=== PATIENT | male | born 1960 | race Caucasian/White ===

== ENCOUNTER → 2018-03-12 12:50 | Outpatient (CLI) | payer OTHER, SELFPAY ==
--- NOTE | 2018-03-12 10:42 | DI.REPORT_ITS ---
SYMPTOM/DIAGNOSIS: ACUTE LT ANKLE PAIN M25.572 LEFT ANKLE: Three views. No acute fracture or dislocation is identified. There are well corticated osseous densities at the tip of the medial malleolus consistent with old injury. The articular surfaces of the ankle are well maintained. There are osteophytes seen at the posterior calcaneus. No suspicious lytic or sclerotic lesions are seen in the ankle. IMPRESSION: Chronic changes of the left ankle. No acute abnormality.
== END ==
PROVIDERS: PCP Nurse Practitioner; Visit Provider Family Medicine
DX: M25.572 Pain in left ankle and joints of left foot (principal); M25.772 Osteophyte, left ankle
CPT/HCPCS: 73610

== ENCOUNTER 2018-09-08 08:51 | Outpatient (CLI) | payer OTHER, SELFPAY ==
[2018-09-08 09:33] LABS: HCT 46.7 % (40.0-50.0); HGB 15.3 g/dL (13.5-17.5); Mean Corp. HGB Concentration 32.8 g/dL (32.0-36.0); Mean Corpuscular Hemoglobin 29.4 pg (27.0-33.0); Mean Corpuscular Volume 89.8 fL (80-95); Mean Platelet Volume 10.3 fL (8.0-11.0); Platelet Count 206 x1000/uL (130-400); RBC Distribution Width 12.7 % (11.8-14.1); White Blood Cell Count 6.55 k/cumm (4.4-10.8)
[2018-09-08 10:19] LABS: ALT 42 U/L (12-78); AST 24 U/L (15-37); Alkaline Phosphatase 140 U/L (46-116); Anion Gap 12.3 mmol/L (3-11); BUN 19 mg/dL (7-18); Bilirubin, Total 0.4 mg/dL (0.2-1.0); CO2 23.7 mmol/L (21.0-32.0); CREATININE 0.97 mg/dL (0.70-1.30); Calcium 9.6 mg/dL (8.5-10.1); Chloride 104 mmol/L (98-107); Glucose 165 mg/dL (70-100); Potassium 4.7 mmol/L (3.5-5.1); Sodium 140 mmol/L (136-145); Total Protein 7.4 g/dL (6.4-8.2)
[2018-09-08 10:24] LABS: Hemoglobin A1C 6.4 % (4.5-6.2)
[2018-09-08 17:13] LABS: COMMENT (LAB VIEW ONLY) 89.36 mg/dL; Microalb ug/mg Crea 104.3 ug/mg Cr
[2018-09-08 17:42] LABS: Cholesterol 239 mg/dL (50-200); HDL Cholesterol 28 mg/dL (40-60); LDL CHOLESTEROL 70 mg/dL (<100)
[2018-09-08 17:48] LABS: Triglyceride 1073 mg/dL (30-150)
== END 2018-09-08 09:11 ==
PROVIDERS: PCP Nurse Practitioner; Visit Provider Nurse Practitioner
DX: E11.9 Type 2 diabetes mellitus without complications (principal); E78.5 Hyperlipidemia, unspecified; I10 Essential (primary) hypertension
CPT/HCPCS: 36415; 80053; 80061; 83721; 85027; 82043; 82570; 83036

== ENCOUNTER 2018-12-12 06:29 | Emergency (ER) | payer OTHER, SELFPAY ==
[2018-12-12] VITALS (70 sets, daily range): BP systolic 115–185; BP diastolic 62–136; PULSE 85–113; RESP 11–18; TEMP 36.2–37.6; O2SAT 90–96
--- NOTE | 2018-12-12 06:34 | W.ED.GENAD ---
Discharge Plan Disposition Patient Disposition: [facility] Condition: Stable Discharge Details Chief Complaint: Abd Prob Clinical Impression: Acute pancreatitis, Community acquired pneumonia, Acute non-ST elevation myocardial infarction (NSTEMI), Lesion of pancreas Primary Care Provider: Humaira Colon ED Provider: Rigoberto Canela Home Meds and New Rx's Prescriptions: No Action fenofibrate 160 mg tablet 160 mg PO DAILY Qty: 30 RF: 5 cholecalciferol (vitamin D3) 1,000 UNIT capsule 1,000 unit PO DAILY RF: 0 bosawellia 1,000 mg DAILY RF: 0 glimepiride 2 MG tablet 2 mg PO BID Qty: 180 RF: 3 metformin [Glucophage] 1,000 mg tablet 1,000 mg PO BID Qty: 180 RF: 3 lisinopril [Zestril] 10 mg tablet 10 mg PO DAILY Qty: 90 RF: 3 trazodone 50 mg tablet 100 mg PO HS PRN (Reason: insomnia) Qty: 60 RF: 12 sildenafil (antihypertensive) 20 mg tablet 20 mg PO PRN Qty: 90 RF: 0 Discharge Data Discharge Date/Time-TO BE ENTERED AT DEPARTURE: 12/12/18 13:44 Medical Decision Making <James Pineda MD - Last Filed: 12/13/18 10:08> Patient presenting with upper abdominal pain with firm tender upper abdomen epigastric to right upper quadrant. Differential includes cholecystitis, perforated ulcer, pancreatitis. 2 IVs placed and LR bolus given. Laboratory studies and CT scan of the abdomen with IV contrast ordered. Will give Dilaudid and Zofran for comfort. Patient's white count is elevated to 16. Lactic acid is 2. Glucose little high at 233. Lipase elevated to 471. Liver function normal. Troponin indeterminate at 0.14. May be related to demand. CT scan is done but not read. On my review the pancreas does look inflamed. Gallbladder looks okay. He is feeling better after fluids, Zofran, Dilaudid. Patient will be signed out to Dr. Canela who will follow up on prelim CT scan read and disposition patient appropriately which is likely going to be a medicine admission with surgical consult. Medical Records Medical records reviewed: Yes I reviewed the patient's medical records. Lab Data Lab results reviewed: Yes I reviewed the patient's lab results. ECG Data Attestation: I personally reviewed and interpreted this ECG (s) as follows: Interpretation: Sinus tachycardia at 102. Normal axis and intervals. Nonspecific ST changes, nothing acute. <Rigoberto Canela, - Last Filed: 12/12/18 10:05> The patient was signed out to me by my colleague Dr. Pineda. At that time we are pending CT results and placement. CT scan is come back and demonstrates notable pancreatitis in conjunction with a questionable pancreatic mass versus pseudocyst versus abscess. With the patient's elevated white count, lactate of 2, elevated glucose, age greater than 55, evidence of pancreatitis, and other comorbidities and risk factor is rancid score is elevated. CT scan also shows evidence of mild pneumonia in the pulmonary bases, and review of this with the patient does reveal that he has had a cough for the last few days. Troponin is elevated at 0.14 however the patient has no chest pain, and the epigastric pain is notably reproducible. No evidence of gallbladder pathology on CT scan. Patient has been started on Levaquin and Flagyl, which will cover pulmonary etiology and intra-abdominal versus pancreatic abscess. He has been given aspirin, with no EKG changes or significant chest pain and no evidence of STEMI we are currently holding off on heparinization. I have spoken briefly with the hospitalist Dr Domínguez and surgeon Dr Wagner here, currently we have no appropriate bed availability, no ICU beds, and no telemetry beds here for the patient. He will reach out to [facility] for potential transfer. Currently the patient remains hemodynamically stable, heart rate has improved to the 90s, blood pressure is slightly high, no evidence of hypotension. He remains afebrile, pain notably improved with Dilaudid. 10:02 AM We have contacted [facility] and I discussed the case with Dr. Stark, she agrees with the assessment and plan. Repeat troponin has gone from 0.02-0.01. He remains asymptomatic of chest pain, with no chest pain, improving troponin, the case was discussed with the [facility] hospitalist, and no recommendation for additional medication. We have given him aspirin already. I have extensively reviewed the treatment plan with the patient. I have addressed all patient concerns at this time. I have also discussed the plan with the admitting physician and they agree with the current assessment and plan and have agreed to assume responsibility for the patient. All parties demonstrate verbal understanding and agreement with our assessment and plan at this time. Diagnosis pancreatitis, pancreatic lesion, and STEMI, community-acquired pneumonia. At time of transfer the patient was reassessed and continued to demonstrate current medical stability. No signs of acute respiratory distress requiring intubation, hemodynamic instability requiring pressor support, or rapidly declining mental status. The patient is stable for transport. HPI <James Pineda MD - Last Filed: 12/13/18 10:08> General Mode of arrival: ambulatory. Date/Time Provider Initiated Documentation: 12/12/18 06:31. Limitations to Documentation: no limitations. Information obtained by: patient. HPI Narrative: Patient presents to the ED with upper abdominal pain that started about 2:00 in the afternoon yesterday. It has become progressively worse throughout the night. He has not been able to sleep and has been sitting up. He has taken Tylenol, Motrin, Ultram. He has nausea but no vomiting. He cannot take a deep breath because it causes so much pain in his abdomen. Pain radiates through to the back. He does not have chest pain or shortness of breath. He thinks he may have had a fever last night. He has loose stool but no diarrhea. He has no prior abdominal surgeries. The right ovary cause significant discomfort especially when hitting bumps. Related Data Home Medications Medication Instructions Recorded Confirmed cholecalciferol (vitamin D3) 1,000 unit PO DAILY 11/19/16 12/12/18 Bosawellia 1,000 mg DAILY 04/08/17 12/12/18 glimepiride 2 mg PO BID #180 tab-cap 11/30/17 12/12/18 metformin 1,000 mg tablet 1,000 mg PO BID #180 tab-cap 04/26/18 12/12/18 lisinopril 10 mg tablet 10 mg PO DAILY #90 tab 05/31/18 12/12/18 trazodone 50 mg tablet 100 mg PO HS PRN #60 tab 07/26/18 12/12/18 fenofibrate 160 mg tablet 160 mg PO DAILY #30 tab 09/20/18 12/12/18 sildenafil (antihypertensive) 20 20 mg PO PRN #90 tab-cap 11/01/18 12/12/18 mg tablet Previous Rx's Medication Instructions Recorded glimepiride 2 mg PO BID #180 tab-cap 11/30/17 metformin 1,000 mg tablet 1,000 mg PO BID #180 tab-cap 04/26/18 lisinopril 10 mg tablet 10 mg PO DAILY #90 tab 05/31/18 trazodone 50 mg tablet 100 mg PO HS PRN #60 tab 07/26/18 fenofibrate 160 mg tablet 160 mg PO DAILY #30 tab 09/20/18 sildenafil (antihypertensive) 20 20 mg PO PRN #90 tab-cap 11/01/18 mg tablet Allergies Allergy/AdvReac Type Severity Reaction Status Date / Time primidone AdvReac HALLUCINATI Verified 12/12/18 06:41 ONS Review of Systems <James Pineda MD - Last Filed: 12/13/18 10:08> Review of Systems 05/23 Review of Systems completed and is negative except as stated above in HPI (Systems reviewed: Const, Eyes, ENT, Resp, CV, GI, , MSK, Skin, Neuro) PFSH <James Pineda MD - Last Filed: 12/13/18 10:08> Medical History Essential tremor (Chronic) Hyperlipidemia (Chronic 08/05/16) Basal cell carcinoma of right upper extremity (Resolved 09/02/17) DM (diabetes mellitus) (Chronic) HTN (hypertension) (Chronic) Surgical History Colonoscopy - MAC (Inactive 07/24/17) Status post carpal tunnel release (Inactive) Family History Mother Diabetes Essential hypertension Hyperlipidemia Melanoma Father Essential hypertension Social History Smoking/Tobacco Use Status: Former Tobacco Use Drug use: 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 Tachycardic and hypertensive. Const: WDWN male, very uncomfortable. HEENT: NC/AT. Normal facial exam. Eyes: Normal conjunctiva and sclera. Neck: Supple. Trachea midline. Lungs: Normal respiratory effort. Lungs are clear. Cor: RRR without murmur/gallop. Good radial pulses. GI: Upper abdomen is firm with tenderness, guarding especially epigastric to right upper quadrant. Neuro: A+O x 3. CN grossly in tact. Good strength and no focal deficit. Ext: No C/C/E. No deformity or tenderness. Skin: Warm and dry without rash. Sign Out <James Pineda MD - Last Filed: 12/13/18 10:08> Sign Out Data: Sign Out Comment: Signed out to Dr. Canela pending CT scan and disposition Last updated by James Pineda MD at 12/12/18 08:20
--- NOTE | 2018-12-12 06:37 | ED.GENADUL_ITS ---
Discharge Plan Disposition Patient Disposition: [facility] Condition: Stable Discharge Details Chief Complaint: Abd Prob Clinical Impression: Acute pancreatitis, Community acquired pneumonia, Acute non-ST elevation myocardial infarction (NSTEMI), Lesion of pancreas Primary Care Provider: Humaira Colon ED Provider: Rigoberto Canela Home Meds and New Rx's Prescriptions: No Action fenofibrate 160 mg tablet 160 mg PO DAILY Qty: 30 RF: 5 cholecalciferol (vitamin D3) 1,000 UNIT capsule 1,000 unit PO DAILY RF: 0 bosawellia 1,000 mg DAILY RF: 0 glimepiride 2 MG tablet 2 mg PO BID Qty: 180 RF: 3 metformin [Glucophage] 1,000 mg tablet 1,000 mg PO BID Qty: 180 RF: 3 lisinopril [Zestril] 10 mg tablet 10 mg PO DAILY Qty: 90 RF: 3 trazodone 50 mg tablet 100 mg PO HS PRN (Reason: insomnia) Qty: 60 RF: 12 sildenafil (antihypertensive) 20 mg tablet 20 mg PO PRN Qty: 90 RF: 0 Discharge Data Discharge Date/Time-TO BE ENTERED AT DEPARTURE: 12/12/18 13:44 Medical Decision Making <James Pineda MD - Last Filed: 12/13/18 10:08> Patient presenting with upper abdominal pain with firm tender upper abdomen epigastric to right upper quadrant. Differential includes cholecystitis, perforated ulcer, pancreatitis. 2 IVs placed and LR bolus given. Laboratory studies and CT scan of the abdomen with IV contrast ordered. Will give Dilaudid and Zofran for comfort. Patient's white count is elevated to 16. Lactic acid is 2. Glucose little high at 233. Lipase elevated to 471. Liver function normal. Troponin indeterminate at 0.14. May be related to demand. CT scan is done but not read. On my review the pancreas does look inflamed. Gallbladder looks okay. He is feeling better after fluids, Zofran, Dilaudid. Patient will be signed out to Dr. Canela who will follow up on prelim CT scan read and disposition patient appropriately which is likely going to be a medicine admission with surgical consult. Medical Records Medical records reviewed: Yes I reviewed the patient's medical records. Lab Data Lab results reviewed: Yes I reviewed the patient's lab results. ECG Data Attestation: I personally reviewed and interpreted this ECG (s) as follows: Interpretation: Sinus tachycardia at 102. Normal axis and intervals. Nonspecific ST changes, nothing acute. <Rigoberto Canela, - Last Filed: 12/12/18 10:05> The patient was signed out to me by my colleague Dr. Pineda. At that time we are pending CT results and placement. CT scan is come back and demonstrates notable pancreatitis in conjunction with a questionable pancreatic mass versus pseudocyst versus abscess. With the patient's elevated white count, lactate of 2, elevated glucose, age greater than 55, evidence of pancreatitis, and other comorbidities and risk factor is rancid score is elevated. CT scan also shows evidence of mild pneumonia in the pulmonary bases, and review of this with the patient does reveal that he has had a cough for the last few days. Troponin is elevated at 0.14 however the patient has no chest pain, and the epigastric pain is notably reproducible. No evidence of gallbladder pathology on CT scan. Patient has been started on Levaquin and Flagyl, which will cover pulmonary etiology and intra-abdominal versus pancreatic abscess. He has been given aspirin, with no EKG changes or significant chest pain and no evidence of STEMI we are currently holding off on heparinization. I have spoken briefly with the hospitalist Dr Domínguez and surgeon Dr Wagner here, currently we have no appropriate bed availability, no ICU beds, and no telemetry beds here for the patient. He will reach out to [facility] for potential transfer. Currently the patient remains hemodynamically stable, heart rate has improved to the 90s, blood pressu re is slightly high, no evidence of hypotension. He remains afebrile, pain notably improved with Dilaudid. 10:02 AM We have contacted [facility] and I discussed the case with Dr. Stark, she agrees with the assessment and plan. Repeat troponin has gone from 0.02-0.01. He remains asymptomatic of chest pain, with no chest pain, improving troponin, the case was discussed with the [facility] hospitalist, and no recommendation for additional medication. We have given him aspirin already. I have extensively reviewed the treatment plan with the patient. I have addressed all patient concerns at this time. I have also discussed the plan with the admitting physician and they agree with the current assessment and plan and have agreed to assume responsibility for the patient. All parties demonstrate verbal understanding and agreement with our assessment and plan at this time. Diagnosis pancreatitis, pancreatic lesion, and STEMI, community-acquired pneumonia. At time of transfer the patient was reassessed and continued to demonstrate current medical stability. No signs of acute respiratory distress requiring intubation, hemodynamic instability requiring pressor support, or rapidly dec lining mental status. The patient is stable for transport. HPI <James Pineda MD - Last Filed: 12/13/18 10:08> General Mode of arrival: ambulatory . Date/Time Provider Initiated Documentation: 12/12/18 06:31 . Limitations to Documentation: no limitations . Information obtained by: patient . HPI Narrative: Patient presents to the ED with upper abdominal pain that started about 2:00 in the afternoon yesterday. It has become progressively worse throughout the night. He has not been able to sleep and has been sitting up. He has taken Tylenol, Motrin, Ultram. He has nausea but no vomiting. He cannot take a deep breath because it causes so much pain in his abdomen. Pain radiates through to the back. He does not have chest pain or shortness of breath. He thinks he may have had a fever last night. He has loose stool but no diarrhea. He has no prior abdominal surgeries. The right ovary cause significant discomfort especially when hitting bumps. Related Data Home Medications Medication Instructions Recorded Confirmed cholecalciferol (vitamin D3) 1,000 unit PO DAILY 11/19/16 12/12/18 Bosawellia 1,000 mg DAILY 04/08/17 12/12/18 glimepiride 2 mg PO BID #180 tab-cap 11/30/17 12/12/18 metformin 1,000 mg tablet 1,000 mg PO BID #180 tab-cap 04/26/18 12/12/18 lisinopril 10 mg tablet 10 mg PO DAILY #90 tab 05/31/18 12/12/18 trazodone 50 mg tablet 100 mg PO HS PRN #60 tab 07/26/18 12/12/18 fenofibrate 160 mg tablet 160 mg PO DAILY #30 tab 09/20/18 12/12/18 sildenafil (antihypertensive) 20 20 mg PO PRN #90 tab-cap 11/01/18 12/12/18 mg tablet Previous Rx's Medication Instructions Recorded glimepiride 2 mg PO BID #180 tab-cap 11/30/17 metformin 1,000 mg tablet 1,000 mg PO BID #180 tab-cap 04/26/18 lisinopril 10 mg tablet 10 mg PO DAILY #90 tab 05/31/18 trazodone 50 mg tablet 100 mg PO HS PRN #60 tab 07/26/18 fenofibrate 160 mg tablet 160 mg PO DAILY #30 tab 09/20/18 sildenafil (antihypertensive) 20 20 mg PO PRN #90 tab-cap 11/01/18 mg tablet Allergies Allergy/AdvReac Type Severity Reaction Status Date / Time primidone AdvReac HALLUCINATI Verified 12/12/18 06:41 ONS Review of Systems <James Pineda MD - Last Filed: 12/13/18 10:08> Review of Systems 05/23 Review of Systems completed and is negative except as stated above in HPI (Systems reviewed: Const, Eyes, ENT, Resp, CV, GI, , MSK, Skin, Neuro) PFSH <James Pineda MD - Last Filed: 12/13/18 10:08> Medical History Essential tremor (Chronic) Hyperlipidemia (Chronic 08/05/16) Basal cell carcinoma of right upper extremity (Resolved 09/02/17) DM (diabetes mellitus) (Chronic) HTN (hypertension) (Chronic) Surgical History Colonoscopy - MAC (Inactive 07/24/17) Status post carpal tunnel release (Inactive) Family History Mother Diabetes Essential hypertension Hyperlipidemia Melanoma Father Essential hypertension Social History Smoking/Tobacco Use Status: Former Tobacco Use Drug use: 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 Tachycardic and hypertensive. Const: WDWN male, very uncomfortable. HEENT: NC/AT. Normal facial exam. Eyes: Normal conjunctiva and sclera. Neck: Supple. Trachea midline. Lungs: Normal respiratory effort. Lungs are clear. Cor: RRR without murmur/gallop. Good radial pulses. GI: Upper abdomen is firm with tenderness, guarding especially epigastric to right upper quadrant. Neuro: A+O x 3. CN grossly in tact. Good strength and no focal deficit. Ext: No C/C/E. No deformity or tenderness. Skin: Warm and dry without rash. Sign Out <James Pineda MD - Last Filed: 12/13/18 10:08> Sign Out Data: Sign Out Comment: Signed out to Dr. Canela pending CT scan and disposition Last updated by James Pineda MD at 12/12/18 08:20
[2018-12-12] MEDS: Lactated Ringers 1,000 ML 1000 ML IV ×2 (07:10→07:52)
[2018-12-12 07:14] LABS: Abs Immature Grans 0.09 k/cumm (0.0-0.09); Absolute Basophil Count 0.05 k/cumm (0.0-0.2); Absolute Eosinophil Count 0.05 k/cumm (0.0-0.7); Absolute Neutrophil Count 13.02 k/cumm (1.2-6.7); Basophils % 0.3; Eosinophils % 0.3; HCT 44.4 % (40.0-50.0); Immature Grans % 0.6; Lymphocytes % 9.2; Mean Corp. HGB Concentration 33.8 g/dL (32.0-36.0); Mean Corpuscular Hemoglobin 29.6 pg (27.0-33.0); Mean Corpuscular Volume 87.6 fL (80-95); Mean Platelet Volume 9.7 fL (8.0-11.0); Monocytes % 8.5; Neutrophils % 81.1; Platelet Count 227 x1000/uL (130-400); RBC 5.07 m/cumm (4.50-6.00); RBC Distribution Width 12.7 % (11.8-14.1); White Blood Cell Count 16.05 k/cumm (4.4-10.8)
[2018-12-12 07:16] LABS: Absolute Lymphocyte Count 1.48 k/cumm (1.2-3.4); Absolute Monocyte Count 1.36 k/cumm (0.11-0.7)
[2018-12-12] MEDS: Ondansetron 4 MG/2 ML VIAL IVP (07:19)
[2018-12-12] MEDS: HYDROmorphone 2 MG/ML VIAL 1 MG IVP ×3 (07:20→11:05)
[2018-12-12] MEDS: Omnipaque 350 MG/ML 100 ML BTL IJ (07:31)
[2018-12-12] MEDS: Normal Saline Flush 10 ML SYR IVP (07:33)
--- NOTE | 2018-12-12 07:35 | DI.CT_ITS ---
SYMPTOM/DIAGNOSIS: UPPER ABD PAIN ABDOMEN AND PELVIC CT: CT examination of the abdomen and pelvis was performed with a bolus infusion of 100 cc's of Omnipaque 350. Images obtained through the lung bases may show minimal dependent atelectasis. There is probable mild hepatic steatosis. Otherwise liver and spleen are unremarkable. Gallbladder and bile ducts are CT normal. There is marked peripancreatic edema. There is a low attenuation, poorly defined, 19 mm. focus in the pancreatic tail. Differential diagnosis would include phlegmon, abscess, pseudocyst or neoplasm. No retroperitoneal or mesenteric adenopathy is seen. The kidneys are unremarkable in appearance. A 34 by 20 mm. in diameter left adrenal mass noted, MR adrenal protocol follow up suggested. No significant abdominal wall hernia is seen. Appendix is normal. No evidence of diverticulitis or bowel obstruction. CONCLUSION: Findings involving the pancreatic tail and body and peripancreatic fat, the findings may be associated with pancreatitis and pancreatic abscess is not excluded. Pancreatic mass not excluded. Appropriate follow up studies requested. Note is also made of a 34 by 20 mm. in diameter left adrenal mass measuring roughly 40 haunsfield units. A follow up adrenal protocol MRI recommended to exclude neoplastic disease. Note is also made of a 15 mm. in diameter lucent lesion of the ischial bone on the right. This is indeterminate in appearance, this may represent a bone cyst. Neoplastic disease not excluded on the basis of this examination. Correlation with the patient's history of any malignancy is requested and additional evaluation with MR or bone scan should be considered.
[2018-12-12 07:38] LABS: Lipase 471 U/L (73-393); Magnesium 1.9 mg/dL (1.8-2.4)
[2018-12-12 07:44] LABS: ALT 41 U/L (12-78); AST 23 U/L (15-37); Albumin 4.1 g/dL (3.4-5.0); Alkaline Phosphatase 98 U/L (46-116); Anion Gap 12.5 mmol/L (3-11); BUN 17 mg/dL (7-18); Bilirubin, Total 0.9 mg/dL (0.2-1.0); CO2 25.5 mmol/L (21.0-32.0); CREATININE 1.05 mg/dL (0.70-1.30); Calcium 9.4 mg/dL (8.5-10.1); Chloride 98 mmol/L (98-107); Glucose 233 mg/dL (70-100); Potassium 4.1 mmol/L (3.5-5.1); Sodium 136 mmol/L (136-145); Total Protein 8.2 g/dL (6.4-8.2)
[2018-12-12 07:48] LABS: Troponin I 0.14 ng/mL (0.00-0.06)
[2018-12-12] MEDS: Lactated Ringers 1,000 ML 125 ML IV (08:17)
--- NOTE | 2018-12-12 08:19 | DI.VRAD_ITS ---
EXAM: CT Abdomen and Pelvis With Contrast EXAM DATE/TIME: 12/12/2018 7:01 AM CLINICAL HISTORY: 58 years old, male; Signs and symptoms; Other: Upper abdominal pain; Additional info: Upper abdominal pain since 12/11/18 2pm TECHNIQUE: Imaging protocol: Axial computed tomography images of the abdomen and pelvis with intravenous contrast. Coronal and sagittal reformatted images were created and reviewed. Radiation optimization: All CT scans at this facility use at least one of these dose optimization techniques: automated exposure control; mA and/or kV adjustment per patient size (includes targeted exams where dose is matched to clinical indication); or iterative reconstruction. Contrast material: OMNIPAQUE 350; Contrast volume: 100 ml; Contrast route: IV; COMPARISON: No relevant prior studies available. FINDINGS: Lungs: Opacities in the right middle lobe and lingula and both lower lobes may represent atelectasis or pneumonia. Mediastinum: Small hiatal hernia contains fat ABDOMEN: Liver: Normal. No mass. Gallbladder and bile ducts: Normal. No calcified stones. No ductal dilation. Pancreas: 19 mm low-attenuation mass in the tail of the pancreas 19-24 Hounsfield units. (4:42). Differential includes abscess, pancreatic pseudocyst, pancreatic mass. There is diffuse peripancreatic inflammatory stranding and fluid, consistent with acute pancreatitis. Inflammatory changes extend into the anterior left pararenal space. Spleen: Normal. No splenomegaly. Adrenals: Left adrenal nodule 3.4 x 2 cm. Kidneys and ureters: Normal. No hydronephrosis. Stomach and bowel: Normal. No obstruction. No mucosal thickening. Appendix: Normal appendix PELVIS: Bladder: Unremarkable as visualized. Reproductive: Unremarkable as visualized. ABDOMEN and PELVIS: Intraperitoneal space: No free air. No free fluid Bones/joints: Healed left rib fractures Soft tissues: Unremarkable. Vasculature: Normal. No abdominal aortic aneurysm. Lymph nodes: Normal. No enlarged lymph nodes. IMPRESSION: 1. 19 mm low-attenuation mass in the tail of the pancreas 19-24 Hounsfield units. (4:42). Differential includes abscess, pancreatic pseudocyst, pancreatic mass. 2. There is diffuse peripancreatic inflammatory stranding and fluid, consistent with acute pancreatitis. Inflammatory changes extend into the anterior left pararenal space. 3. Opacities in the right middle lobe and lingula and both lower lobes may represent atelectasis or pneumonia. 4. Left adrenal nodule 3.4 x 2 cm. Recommend further evaluation THIS REPORT CONTAINS FINDINGS THAT MAY BE CRITICAL TO PATIENT CARE. The findings were verbally communicated via telephone conference with Dr. Canela at 8:18 AM EDT on 12/12/2018. The findings were acknowledged and understood. Dictated and Authenticated by: Imtiaz Bolivar MD. Ordering:ANA LUISA Ramirez MD
[2018-12-12] MEDS: levoFLOXacin 750 MG/150 ML BAG 100 MG IVPB (08:59)
[2018-12-12 09:10] LABS: Bilirubin Negative (Negative); Blood Negative (Negative); Clarity Clear; Glucose 100 mg/dL (Negative); Ketones Negative (Negative); Leukocyte Esterase Negative (Negative); Nitrite Negative (Negative); Specific Gravity 1.015 (1.005-1.025); Urobilinogen 0.2 EU/dL (Up TO 0.2)
[2018-12-12] MEDS: Aspirin 81 MG CHEW 324 MG CH (09:15)
[2018-12-12 09:30] LABS: Epithelial Cells Negative HPF (Negative); RBC Negative (0-2); WBC Negative HPF (0-5)
[2018-12-12 09:31] LABS: Bacteria Negative HPF (Negative); C & S Indicated? No; Casts Negative LPF (Negative); Crystals Negative HPF (Negative); Mucus Negative (Negative)
[2018-12-12 09:53] LABS: Troponin I 0.11 ng/mL (0.00-0.06)
[2018-12-12] MEDS: metroNIDAZOLE 500 MG/100 ML BAG 100 MG IVPB (10:38)
== END 2018-12-12 13:44 | disposition short-term general hospital (02) ==
PROVIDERS: Emergency Medicine; Emergency Provider Student in an Organized Health Care Education/Training Program; PCP Nurse Practitioner
DX: K85.90 Acute pancreatitis without necrosis or infection, unspecified (principal); J18.9 Pneumonia, unspecified organism; I21.4 Non-ST elevation (NSTEMI) myocardial infarction; R93.3 Abnormal findings on diagnostic imaging of other parts of digestive tract; R11.0 Nausea; E11.9 Type 2 diabetes mellitus without complications; Z79.84 Long term (current) use of oral hypoglycemic drugs; I10 Essential (primary) hypertension
CPT/HCPCS: 36415; 80053; 83690; 93005; 96361; 96365; 96366; 96367; 96375; 96376; 99285; 74177; 81003; 81015; 83605; 83735; 84484; 85025; 93010; J1956; J2405; J3490

== ENCOUNTER 2018-12-17 07:54 | Outpatient (CLI) | payer OTHER, SELFPAY ==
[2018-12-17 09:32] LABS: Hemoglobin A1C 6.9 % (4.5-6.2)
[2018-12-17 09:41] LABS: ALT 60 U/L (12-78); AST 46 U/L (15-37); Albumin 3.7 g/dL (3.4-5.0); Alkaline Phosphatase 96 U/L (46-116); Amylase 151 U/L (25-115); Anion Gap 11.5 mmol/L (3-11); BUN 22 mg/dL (7-18); Bilirubin, Total 0.2 mg/dL (0.2-1.0); CO2 23.5 mmol/L (21.0-32.0); CREATININE 1.23 mg/dL (0.70-1.30); Chloride 103 mmol/L (98-107); Glucose 148 mg/dL (70-100); Lipase 186 U/L (73-393); Potassium 4.7 mmol/L (3.5-5.1); Sodium 138 mmol/L (136-145); Total Protein 7.4 g/dL (6.4-8.2)
[2018-12-17 09:52] LABS: Calcium 9.3 mg/dL (8.5-10.1); Cholesterol 195 mg/dL (50-200); HDL Cholesterol 18 mg/dL (40-60); LDL CHOLESTEROL 111 mg/dL (<100); Triglyceride 459 mg/dL (30-150)
[2018-12-17 14:32] LABS: HCT 44.3 % (40.0-50.0); HGB 14.3 g/dL (13.5-17.5); Mean Corp. HGB Concentration 32.3 g/dL (32.0-36.0); Mean Corpuscular Hemoglobin 29.2 pg (27.0-33.0); Mean Corpuscular Volume 90.4 fL (80-95); Mean Platelet Volume 10.5 fL (8.0-11.0); Platelet Count 308 x1000/uL (130-400); RBC Distribution Width 12.9 % (11.8-14.1); White Blood Cell Count 6.58 k/cumm (4.4-10.8)
== END 2018-12-17 08:14 ==
PROVIDERS: PCP Nurse Practitioner; Visit Provider Nurse Practitioner
DX: E11.9 Type 2 diabetes mellitus without complications (principal); E78.5 Hyperlipidemia, unspecified; I10 Essential (primary) hypertension; K85.90 Acute pancreatitis without necrosis or infection, unspecified
CPT/HCPCS: 36415; 80053; 80061; 83690; 83721; 85027; 82150; 83036

== ENCOUNTER 2018-12-30 16:20 | Outpatient (CLI) | payer OTHER, SELFPAY ==
[2019-01-03 12:07] LABS: Hepatitis A Antibody IgM Negative (NEGAT); Hepatitis B Core Antibody Negative (NEGAT); Hepatitis B surface Ag Negative (NEGAT); Hepatitis C Ab w Rflx HCV PCR Negative (NEGAT)
== END 2018-12-30 16:40 ==
PROVIDERS: PCP Nurse Practitioner; Visit Provider Nurse Practitioner
DX: Z11.59 Encounter for screening for other viral diseases (principal); Z01.84 Encounter for antibody response examination
CPT/HCPCS: 36415; 86704; 86709; 86803; 87340

== ENCOUNTER 2019-01-21 01:44 | Outpatient (CLI) | payer OTHER, SELFPAY ==
--- NOTE | 2019-01-21 07:51 | DI.RAD_ITS ---
SYMPTOM/DIAGNOSIS: RIGHT KNEE PAIN RIGHT KNEE: Multiple views. No priors. There is moderate narrowing of the lateral femoral tibial joint space and patella femoral joint. Articular spurring is seen involving all three joint compartments. The bones appear intact. There is a small suprapatellar joint effusion. IMPRESSION: Moderate osteoarthritis right knee.
--- NOTE | 2019-01-21 07:51 | DI.RAD_ITS ---
SYMPTOM/DIAGNOSIS: LT HIP PAIN, M25.552 LEFT HIP: AP pelvis, no priors. Comparison ct scan of the abdomen and pelvis is 12/12/18 The left hip is well maintained. No acute fracture, dislocation, lytic or sclerotic lesion is seen. The bones are normally mineralized. The soft tissues are unremarkable. IMPRESSION: Negative left hip.
== END 2019-01-21 02:04 ==
PROVIDERS: PCP Nurse Practitioner; Visit Provider Nurse Practitioner
DX: M25.561 Pain in right knee (principal); M25.552 Pain in left hip; M17.11 Unilateral primary osteoarthritis, right knee; M25.461 Effusion, right knee
CPT/HCPCS: 73502; 73564

== ENCOUNTER 2019-07-18 00:03 | Outpatient (CLI) | payer OTHER, SELFPAY ==
--- NOTE | 2019-07-18 08:19 | ETT_ITS ---
APPROVED REPORT Exam: Exercise Treadmill Patient Location: Out-Patient Room/Bed: Stress Nurse: Wandy Wheatley RN BMI: 32.01 Baseline Rhythm: Sinus Rhythm Indications: For the past 2 months patient reports feeling SOB with mild exercise. Patient denies any other symptoms with SOB. He does report he has Lots of stress in life. Medical History Medical History: Anxiety Allergies: Lisinoprol, Hydroxyzine for anxiety. Cardiac Risk Factors: FHX of CAD, HTN, Hyperlipidemia, DM Previous Cardiac Procedures: None Pretest Chest Pain Characteristics: None Exercise History: Physically active Lung Sounds: Clear to auscultation Heart Sounds: Regular Stress Test Details Test: Exercise stress testing was performed using a Regis protocol. Rest Stress HR Max Heart Rate (APMHR): 160 bpm Resting HR Supine: 84 bpm Target HR (85% APMHR): 136 bpm Resting HR Standin bpm Max HR Achieved: 160 bpm % of APMHR: 100 HR response to stress: Normal HR response to stress BP Resting BP Supine: 124/88 mmHg Resting BP Standin/90 mmHg Max BP: 200/74 mmHg BP response to stress: Abnormal hypertensive response to stress. ECG Resting ECG: Sinus Rhythm ST Change: Normal Ectopy: Rare PVC's at baseline with occasional PVC's in recovery from exercise. Stress ECG: Sinus Tachycardia ST Change: Normal, Upsloping ST depression Lead(s): V4, V5 Maximum ST Deviation: 1 mm Arrhythmia: Right chest tightness (3/10) at 5 minutes 39 seconds of exercise that resolved by 1 minute 3 seconds of recovery. Recovery ECG: Sinus Rhythm Recovery ST Change: Normal Clinical Exercise duration: 6 min40 sec Highest Stage Achieved: Stage 3: 3.4 mph at 14% grade. Exercise capacity: 8.08 METs Functional Capacity: Mildly deminished capacity Stress ECG Conclusion 1. The patient exercised for 6 minutes and 40 seconds (8 METS) which represents a mildly diminished e xercise capacity 2. The patient developed upsloping ST depressions in the lateral leads. 3. The patient had some mild chest tightness that was not exercise limiting. 4. The Camilo Score (-3) estimates an annual cardiovascular mortality of 1% and a five year survival of 90%. Using the Camilo Score there is an intermediate probability of angiographic coronary disease. Protocol Used: Regis Protocol Stress Test Summary STAGE Time (mins) Speed (mph) Grade (%) HR BP SYMPTOMS METS Supine 84 124/88 Standing 90 124/90 1 3 1.7 10 130 156/80 4.6 2 6 2.5 12 148 172/80 7 3 9 3.4 14 10.2 4 12 4.2 16 12.9 5 15 5.0 18 17.2 1 min recovery 138 200/74 3 min recovery 105 182/80 6 min recovery 97 142/80 9 min of recovery 93 138/80
== END 2019-07-18 00:23 ==
PROVIDERS: PCP Nurse Practitioner; Visit Provider Nurse Practitioner
DX: R06.02 Shortness of breath (principal); R06.09 Other forms of dyspnea; F41.9 Anxiety disorder, unspecified; I10 Essential (primary) hypertension; E11.9 Type 2 diabetes mellitus without complications; E78.5 Hyperlipidemia, unspecified; Z82.49 Family history of ischemic heart disease and other diseases of the circulatory system
CPT/HCPCS: 93017

== ENCOUNTER 2019-10-28 08:32 | Emergency (ER) | payer OTHER, SELFPAY ==
[2019-10-28 08:49] VITALS: BP 149/80; PULSE 104; RESP 18; TEMP 36.6; O2SAT 96
--- NOTE | 2019-10-28 08:54 | ED.GENADUL_ITS ---
Discharge Plan Disposition Patient Disposition: HOME Condition: Stable Discharge Details Chief Complaint: Abd Prob Clinical Impression: Acute diverticulitis Primary Care Provider: Humaira Colon ED Provider: Nilsa Moncada Home Meds and New Rx's Prescriptions: New amoxicillin-pot clavulanate [Augmentin] 875-125 mg tablet 1 tab PO BID 10 Days Qty: 20 RF: 0 Continued ibuprofen 800 mg tablet 800 mg PO TID PRNRF: 0 acetaminophen [Tylenol 8 Hour] 650 mg tablet extended release 650 mg PO Q8H PRN (Reason: pain) RF: 0 tramadol 50 mg tablet 50 mg PO Q8H PRN (Reason: pain) Qty: 60 RF: 0 cholecalciferol (vitamin D3) 1,000 UNIT capsule 1,000 unit PO DAILY RF: 0 bosawellia 1,000 mg DAILY RF: 0 (DME) Blood Glucose Test Strip See Rx Instructions .ROUTE .MEDSUPPLY Qty: 100 RF: 3 sildenafil (pulm.hypertension) 20 mg tablet 20 mg PO DAILY PRN (Reason: ED) Qty: 90 RF: 0 lisinopril [Zestril] 10 mg tablet 10 mg PO DAILY Qty: 90 RF: 3 glimepiride 2 mg tablet 2 mg PO BID Qty: 180 RF: 3 metformin [Glucophage] 1,000 mg tablet 1,000 mg PO BID Qty: 180 RF: 3 trazodone 50 mg tablet 100 mg PO HS PRN (Reason: insomnia) Qty: 60 RF: 12 hydroxyzine HCl 25 mg tablet 25 mg PO TID PRN (Reason: anxiety) Qty: 60 RF: 3 Discharge Instructions Instructions: Diverticulitis (ED), Diverticulitis Diet (ED) Additional Instructions: Drink plenty of fluids and get plenty of rest. Take the antibiotics until finished. Take Tylenol as needed and directed for pain. Take the tramadol for pain not relieved with Tylenol or Motrin. Follow-up with your primary care doctor within the next week for reevaluation as well as for referral for outpatient ADRENAL PROTOCOL abdominal CT scan for further evaluation of the adrenal mass noted on CT scan. Return immediately to the emergency department if you develop any worsening or concerning symptoms such as fever, vomiting or worsening abdominal pain. Discharge Data Discharge Date/Time-TO BE ENTERED AT DEPARTURE: 10/28/19 11:56 Discharge Physician: Nilsa Moncada Medical Decision Making 0850 -- 59-year-old male with a history of diabetes, anxiety, obesity presents with periumbilical abdominal pain which radiated to the right lower quadrant since last night. Admits to some nausea. Admits to history of diverticulosis. No history of abdominal surgeries. Blood pressure and heart rate mildly elevated. Afebrile. Patient appears non toxic. He has significant tenderness across lower abdomen, worse in right lower quadrant. Positive rebound. No rigidity or guarding. Differential diagnosis includes acute appendicitis, acute diverticulitis, small bowel obstruction, colitis. Will place an IV, bolus IV fluids, screening labs, CT abdomen pelvis. Patient is declining any nausea or pain medication at this time. 1015 -- pt reassessed -patient comfortable if not moving. Declining any pain or nausea meds at this time. 1130 --labs and imaging reviewed. CT notes sigmoid diverticulitis in the right lower quadrant. Metabolic panel result delayed due to highly lipemic blood. Glucose 208. Normal bicarb and anion gap. Normal lipase. As patient has been hemodynamically stable without fever and normal white blood cell count, he is appropriate for outpatient management. He was given a dose of Augmentin here as well as prescription. CT also noted an increase in a previously noted adrenal mass. Radiology recommended an outpatient adrenal protocol CT. Patient states he was aware of this left adrenal mass and will follow-up with his PCP for outpatient CT. Advised to follow up with the primary care doctor for re-evaluation. Usual and customary return precautions given prior to discharge. Medical Records Medical records reviewed: Yes I reviewed the patient's medical records. Imaging Data Radiologic Study: Radiologist's impression: CT ABDOMEN PELVIS W CLINICAL HISTORY: RLQ abd pain, r/o appendicitis vs diverticulitis COMPARISON: CT ABDOMEN PELVIS W from 12/12/2018 FINDINGS: CT examination of the abdomen and pelvis was performed with a bolus infusion of 100 cc of Omnipaque 350. Images obtained through the lung bases are unremarkable. Tiny well-circumscribed, presumed bone cysts, are noted in right femoral head and right ischial bone. No change from prior CT of 12/12/2018. There is decreased hepatic attenuation consistent with hepatic steatosis. The liver is mildly enlarged. Spleen is unremarkable in appearance. No biliary dilatation. Gallbladder is CT normal. Pancreas appears normal. Abdominal aorta is of normal diameter and no major vascular abnormality is seen. There is a previously noted left adrenal mass, this is increased slightly in size in comparison with prior CT of 12/12/2018 and now measures about 38 x 24 millimeters in diameter. Adrenal protocol CT recommended for follow-up to evalu ate the possibility of malignancy. Kidneys appear normal. No urinary tract calcification or obstruction. Urinary bladder unremarkable. No significant abdominal wall hernia seen. No abdominal or pelvic adenopathy. Appendix is normal. There is wall thickening of sigmoid colon, particularly in the right lower quadrant where there is significant surrounding pericolonic fat edema. Findings are consistent with acute diverticulitis. No evidence of perforation or abscess formation. IMPRESSION: Sigmoid diverticulitis, the involved portion of the sigmoid lies in the right lower quadrant. Some interval growth noted in left adrenal lesion, adrenal protocol CT recommended for further evaluation. Hepatic steatosis and hepatomegaly noted. Lab Data Lab results reviewed: Yes I reviewed the patient's lab results. Labs: Laboratory Tests Range/Units 10/28/19 10/28/19 09:05 09:05 WBC (4.4-10.8) k/cumm 8.64 RBC (4.50-6.00) m/cumm 4.96 Hgb (13.5-17.5) g/dL 14.9 Hct (40.0-50.0) % 44.5 MCV (80-95) fL 89.7 MCH (27.0-33.0) pg 30.0 MCHC (32.0-36.0) g/dL 33.5 RDW (11.8-14.1) % 12.9 Plt Count (130-400) x1000/uL 221 MPV (8.0-11.0) fL 10.0 Immature Gran % % 0.7 Neutrophils % 63.2 Lymphocytes % 23.3 Monocytes % 10.1 Eosinophils % 2.2 Basophils % 0.5 Absolute Neutrophils (1.2-6.7) k/cumm 5.47 Absolute Lymphocytes (1.2-3.4) k/cumm 2.01 Absolute Monocytes (0.11-0.7) k/cumm 0.87 H Absolute Eosinophils (0.0-0.7) k/cumm 0.19 Absolute Basophils (0.0-0.2) k/cumm 0.04 Sodium (136-145) mmol/L 136 Potassium (3.5-5.1) mmol/L 4.1 Chloride (98-107) mmol/L 102 Carbon Dioxide (21.0-32.0) mmol/L 23.8 Anion Gap (3-11) mmol/L 10.2 BUN (7-18) mg/dL 26 H Creatinine (0.70-1.30) mg/dL 1.08 Estimated GFR/1.73 m2 (mL/min/1.73m2) >= 60.00 Glucose (74-106) mg/dL 208 H Calcium (8.5-10.1) mg/dL 8.6 Total Bilirubin (0.2-1.0) mg/dL 0.5 AST (15-37) U/L 65 H ALT (16-63) U/L 49 Alkaline Phosphatase (46-116) U/L 144 H Total Protein (6.4-8.2) g/dL 7.6 Albumin (3.4-5.0) g/dL 3.7 Lipase (73-393) U/L 156 HPI General Mode of arrival: ambulatory . Date/Time Provider Initiated Documentation: 10/28/19 08:34 . Limitations to Documentation: no limitations . Information obtained by: patient . History of Present Illness 59 year old M presents to the emergency department with the chief complaint of abdominal pain , Quality is described as aching and dull, and is localized to the abdomen. Patient periumbillical. Patient started experiencing this day(s) (1) and it has been constant. Rest improves symptom(s), Movement worsens symptoms . Patient notes nausea/vomiting (no vomiting) and other (last BM this morning, no bleeding noted.). Patient did receive the following treatments prior to arrival, other (Gas-X last night, nothing this morning) Related Data Home Medications Medication Instructions Recorded Confirmed cholecalciferol (vitamin D3) 1,000 unit PO DAILY 11/19/16 06/09/19 Bosawellia 1,000 mg DAILY 04/08/17 06/09/19 blood sugar diagnostic #100 each 03/07/19 06/09/19 sildenafil (pulm.hypertension) 20 20 mg PO DAILY PRN #90 tab-cap 04/25/19 06/09/19 mg tablet lisinopril 10 mg tablet 10 mg PO DAILY #90 tab 06/06/19 06/09/19 acetaminophen 650 mg 650 mg PO Q8H PRN 06/09/19 06/09/19 tablet,extended release ibuprofen 800 mg tablet 800 mg PO TID PRN 06/09/19 06/09/19 tramadol 50 mg tablet 50 mg PO Q8H PRN #60 tab 06/09/19 06/09/19 glimepiride 2 mg tablet 2 mg PO BID #180 tab 07/05/19 metformin 1,000 mg tablet 1,000 mg PO BID #180 tab-cap 07/05/19 trazodone 50 mg tablet 100 mg PO HS PRN #60 tab 08/15/19 hydroxyzine HCl 25 mg tablet 25 mg PO TID PRN #60 tab 10/03/19 amoxicillin-pot clavulanate 1 tab PO BID 10 Days #20 tab 10/28/19 [Augmentin] Previous Rx's Medication Instructions Recorded blood sugar diagnostic #100 each 03/07/19 sildenafil (pulm.hypertension) 20 20 mg PO DAILY PRN #90 tab-cap 04/25/19 mg tablet lisinopril 10 mg tablet 10 mg PO DAILY #90 tab 06/06/19 tramadol 50 mg tablet 50 mg PO Q8H PRN #60 tab 06/09/19 glimepiride 2 mg tablet 2 mg PO BID #180 tab 07/05/19 metformin 1,000 mg tablet 1,000 mg PO BID #180 tab-cap 07/05/19 trazodone 50 mg tablet 100 mg PO HS PRN #60 tab 08/15/19 hydroxyzine HCl 25 mg tablet 25 mg PO TID PRN #60 tab 10/03/19 amoxicillin-pot clavulanate 1 tab PO BID 10 Days #20 tab 10/28/19 [Augmentin] Allergies Allergy/AdvReac Type Severity Reaction Status Date / Time meloxicam Allergy Severe that shut Verified 06/27/19 13:33 my pnacreas down fenofibrate AdvReac Verified 06/27/19 13:33 primidone AdvReac HALLUCINATI Verified 06/27/19 13:33 ONS General Stated Complaint: Abd Prob TAMMY: 3 Review of Systems All systems reviewed & are unremarkable except as noted in HPI and below Constitutional Constitutional: Reports as per HPI, Denies chills and Denies fever(s) Eyes Eyes: Denies blurry vision ENT Ears, Nose, Mouth, and Throat: Denies dizziness, Denies sore throat and Denies throat swelling Cardiovascular Cardiovascular: Denies chest pain and Denies dyspnea Respiratory Respiratory: Denies cough and Denies dyspnea Gastrointestinal Gastrointestinal: Reports abdominal pain, Denies diarrhea, Reports nausea and Denies vomiting Genitourinary Genitourinary: Denies hematuria and Denies dysuria Musculoskeletal Musculoskeletal: Denies back pain and Denies numbness Integumentary/Breasts Skin/Breast: Denies lesions and Denies rash Neurologic Neurologic: Denies dizziness, Denies localized weakness and Denies numbness Allergic/Immunologic Allergic/Immunologic: Denies throat swelling [facility] Medical History (Updated 10/28/19 @ 10:28 by Nilsa Moncada DO) Anxiety (Chronic) Basal cell carcinoma of right upper extremity (Resolved 09/02/17) Chronic pain of right knee (Acute) DM (diabetes mellitus) (Chronic) Essential tremor (Chronic) HTN (hypertension) (Chronic) Hyperlipidemia (Chronic 08/05/16) Surgical History (Updated 01/10/19 @ 12:26 by Alena Guerrier RN) Colonoscopy - MAC (Inactive 07/24/17) Status post carpal tunnel release (Inactive) Status post endoscopy (Acute) upper endoscopic ultrasound (esophagus:normal findings) Pancreas: At least 4 diminutive cysts present largest 5 mm. no evidence of pancreatic mass lesion. consider repeat Ct scan in one year to demonstrate cyst stability. Néstor Hayes MD [facility] [place]. Family History Mother Diabetes Essential hypertension Hyperlipidemia Melanoma Father Essential hypertension Social History (Updated 12/23/18 @ 15:52 by Yesica Hale RN) Smoking/Tobacco Use Status: Former Tobacco Use Alcohol Intake: current Alcohol Intake frequency: holidays/special occasions only Drug use: Never Substance use type: does not use Adopted: No Caregiver/Support person: No Foster care: No Household members: spouse Communication Needs: None Education Level: college Details: DDS current occupation: DENTIST Current gender identity: male What type of physical activity do you participate in: walking, bicycling and swimming Duration: 60-90 minutes/day Frequency: daily Do you feel safe at home: Yes Do you feel safe in your relationship?: Yes Exam Const General: cooperative, healthy appearing and no acute distress HENMI Head: normal to inspection Face and sinus: normal facial exam Eyes General: appearance normal, both eyes and all related structures EOM: EOM intact bilaterally Neck Neck: normal visual inspection and No submandibular swelling Lymphatic: no lymphadenopathy noted Chest Chest: normal inspection of the chest and no tenderness Resp Effort & Inspection: normal respiratory effort and able to speak in complete sentences Auscultation: clear to auscultation bilaterally Cardio Rate: regular rate Rhythm: regular rhythm GI Inspection: obesity Palpation: soft, not firm, not rigid and tender in the LLQ, in the RLQ and supr apubicly Auscultation: hypoactive bowel sounds Skin General skin exam: no rashes or lesions noted Neuro General: patient alert, patient awake and patient oriented x3 Cognition: normal cognition Speech: speech normal Motor: muscle tone normal throughout Sensory Exam: no sensory deficits noted Extrem General: normal to inspection, full ROM, capillary refill normal, no calf tenderness bilaterally and no edema Psych Appearance: grossly normal Mental Status: mental status grossly normal Speech and Movement: speech and movement normal Affect: normal affect Course Vital Signs Vital signs: Vital Signs Temperature 97.9 F 10/28/19 08:49 Pulse 104 H 10/28/19 08:49 Respiratory Rate 18 10/28/19 08:49 Blood Pressure 149/80 H 10/28/19 08:49 Pulse Oximetry 96 10/28/19 08:49 Temperature 97.9 F 10/28/19 08:49 Temperature Source Tympanic 10/28/19 08:49 Pulse 104 H 10/28/19 08:49 Respiratory Rate 18 10/28/19 08:49 Blood Pressure 149/80 H 10/28/19 08:49 Blood Pressure Position Sitting 10/28/19 08:49 Pulse Oximetry 96 10/28/19 08:49 Oxygen Delivery Method Room Air 10/28/19 08:49 Oxygen Flow Rate 0 10/28/19 08:49 Pain Level 5 10/28/19 08:49
[2019-10-28] MEDS: Normal Saline 1,000 ML 1000 ML IV (09:15)
[2019-10-28] MEDS: Normal Saline Flush 10 ML SYR IVP (09:16)
[2019-10-28 09:17] VITALS: BP 127/73; PULSE 91; RESP 18; O2SAT 96
[2019-10-28 09:24] LABS: Abs Immature Grans 0.06 k/cumm (0.0-0.09); Absolute Basophil Count 0.04 k/cumm (0.0-0.2); Absolute Eosinophil Count 0.19 k/cumm (0.0-0.7); Absolute Lymphocyte Count 2.01 k/cumm (1.2-3.4); Absolute Monocyte Count 0.87 k/cumm (0.11-0.7); Absolute Neutrophil Count 5.47 k/cumm (1.2-6.7); Basophils % 0.5; Eosinophils % 2.2; HCT 44.5 % (40.0-50.0); HGB 14.9 g/dL (13.5-17.5); Immature Grans % 0.7 %; Lymphocytes % 23.3; Mean Corp. HGB Concentration 33.5 g/dL (32.0-36.0); Mean Corpuscular Volume 89.7 fL (80-95); Monocytes % 10.1; Neutrophils % 63.2; Platelet Count 221 x1000/uL (130-400); RBC 4.96 m/cumm (4.50-6.00); RBC Distribution Width 12.9 % (11.8-14.1); White Blood Cell Count 8.64 k/cumm (4.4-10.8)
--- NOTE | 2019-10-28 09:48 | NUR.NOTE ---
Nursing Note: Pt off unit via stretcher to CT. pt remains stable at this time. will continue to monitor.
[2019-10-28 09:50] VITALS: BP 131/73; PULSE 86; RESP 18; O2SAT 98
[2019-10-28 09:51] LABS: CO2 23.8 mmol/L (21.0-32.0); Chloride 102 mmol/L (98-107); Potassium 4.1 mmol/L (3.5-5.1); Sodium 136 mmol/L (136-145)
--- NOTE | 2019-10-28 09:54 | DI.CT_ITS ---
EXAM: CT ABDOMEN PELVIS W CLINICAL HISTORY: RLQ abd pain, r/o appendicitis vs diverticulitis COMPARISON: CT ABDOMEN PELVIS W from 12/12/2018 FINDINGS: CT examination of the abdomen and pelvis was performed with a bolus infusion of 100 cc of Omnipaque 3 50. Images obtained through the lung bases are unremarkable. Tiny well-circumscribed, presumed bone cysts, are noted in right femoral head and right ischial bone. No change from prior CT of 9. There is decreased hepatic attenuation consistent with hepatic steatosis. The liver is mildly enlarg ed. Spleen is unremarkable in appearance. No biliary dilatation. Gallbladder is CT normal. Pancre as appears normal. Abdominal aorta is of normal diameter and no major vascular abnormality is seen. There is a previously noted left adrenal mass, this is increased slightly in size in comparison with prior CT of 12/12/2018 and now measures about 38 x 24 millimeters in diameter. Adrenal protocol CT r ecommended for follow-up to evaluate the possibility of malignancy. Kidneys appear normal. No urinary tract calcification or obstruction. Urinary bladder unremarkable. No significant abdominal wall hernia seen. No abdominal or pelvic adenopathy. Appendix is normal. There is wall thickening of sigmoid colon, particularly in the right lower quad rant where there is significant surrounding pericolonic fat edema. Findings are consistent with acut e diverticulitis. No evidence of perforation or abscess formation. IMPRESSION: Sigmoid diverticulitis, the involved portion of the sigmoid lies in the right lower quadrant. Some interval growth noted in left adrenal lesion, adrenal protocol CT recommended for further evalua tion. Hepatic steatosis and hepatomegaly noted.
[2019-10-28 10:21] VITALS: BP 133/72; PULSE 90; RESP 18; TEMP 36.9; O2SAT 98
--- NOTE | 2019-10-28 10:21 | NUR.NOTE ---
Nursing Note: MD Moncada in room updating patient on CT results and plan of care. no new changes. Call light in reach. will continue to monitor.
[2019-10-28] MEDS: Normal Saline - Diluent 50 ML VIAL IV (10:25)
[2019-10-28] MEDS: Omnipaque 350 MG/ML 100 ML BTL IJ (10:25)
[2019-10-28] MEDS: Omnipaque 350 MG/ML 50 ML BTL 25 ML IJ (10:27)
[2019-10-28 11:03] VITALS: BP 132/76; PULSE 83; RESP 16; O2SAT 95
[2019-10-28 11:26] LABS: Albumin 3.7 g/dL (3.4-5.0); Alkaline Phosphatase 144 U/L (46-116); Bilirubin, Total 0.5 mg/dL (0.2-1.0); Calcium 8.6 mg/dL (8.5-10.1); Glucose 208 mg/dL (74-106); Lipase 156 U/L (73-393); Total Protein 7.6 g/dL (6.4-8.2)
[2019-10-28 11:28] LABS: BUN 26 mg/dL (7-18); CREATININE 1.08 mg/dL (0.70-1.30)
[2019-10-28 11:37] LABS: Anion Gap 10.2 mmol/L (3-11)
[2019-10-28 11:48] LABS: AST 65 U/L (15-37)
[2019-10-28] MEDS: Amoxicillin 875/Clav. 125 TAB PO (11:50)
[2019-10-28 11:55] VITALS: BP 132/76; PULSE 83; RESP 16; O2SAT 95
[2019-10-28 12:43] LABS: ALT 49 U/L (16-63)
== END 2019-10-28 11:56 | disposition home or self-care (01) ==
PROVIDERS: Emergency Provider Physician Assistant; PCP Nurse Practitioner
DX: K57.32 Diverticulitis of large intestine without perforation or abscess without bleeding (principal); R93.5 Abnormal findings on diagnostic imaging of other abdominal regions, including retroperitoneum; E11.9 Type 2 diabetes mellitus without complications; Z79.84 Long term (current) use of oral hypoglycemic drugs; I10 Essential (primary) hypertension
CPT/HCPCS: 80053; 83690; 96360; 99285; 74177; 85025; 99284; J3490; Q9967

== ENCOUNTER 2019-11-08 01:56 | Outpatient (CLI) | payer OTHER, SELFPAY ==
[2019-11-11 16:30] LABS: COVID-19 RT-PCR Result Not Detected (NotDetected)
== END 2019-11-08 02:16 ==
PROVIDERS: PCP Nurse Practitioner; Visit Provider Nurse Practitioner
DX: Z20.828 Contact with and (suspected) exposure to other viral communicable diseases (principal); R05 Cough; R50.9 Fever, unspecified
CPT/HCPCS: U0003

== ENCOUNTER 2020-01-06 02:05 | Outpatient (CLI) | payer BC, SELFPAY ==
[2020-01-06 11:25] LABS: Bilirubin Negative (Negative); Blood Negative (Negative); Clarity Clear (Clear); Glucose Negative (Negative); Ketones Negative (Negative); Leukocyte Esterase Negative (Negative); Nitrite Negative (Negative); Specific Gravity >= 1.030 (1.005-1.025); Urobilinogen 0.2 EU/dL (Up TO 0.2); pH 5.5 (5-8)
[2020-01-06 11:34] LABS: Hemoglobin A1C 6.8 % (3.8-5.6)
[2020-01-06 11:38] LABS: RBC 0-2 HPF (0-2); WBC 0-2 HPF (0-5)
[2020-01-06 11:39] LABS: Bacteria Few HPF (Negative); Crystals Few Amorphous HPF (Negative); Epithelial Cells Negative HPF (Negative); Mucus Moderate (Negative); Other Cells Rare Renal (Negative)
[2020-01-06 11:40] LABS: C & S Indicated? No
[2020-01-06 13:31] LABS: Anion Gap 8.6 mmol/L (3-11); BUN 25 mg/dL (7-18); CO2 25.4 mmol/L (21.0-32.0); CREATININE 1.09 mg/dL (0.70-1.30); Calcium 9.3 mg/dL (8.5-10.1); Chloride 100 mmol/L (98-107); Cholesterol 278 mg/dL (<200); Glucose 159 mg/dL (74-106); HDL Cholesterol 25 mg/dL (40-60); Potassium 4.2 mmol/L (3.5-5.1); Sodium 134 mmol/L (136-145)
[2020-01-06 13:48] LABS: Triglyceride 1543 mg/dL (<150)
[2020-01-06 13:59] LABS: LDL CHOLESTEROL 58 mg/dL (<100)
== END 2020-01-06 02:25 ==
PROVIDERS: PCP Nurse Practitioner; Visit Provider Nurse Practitioner
DX: E78.5 Hyperlipidemia, unspecified (principal); E11.9 Type 2 diabetes mellitus without complications; M54.9 Dorsalgia, unspecified
CPT/HCPCS: 36415; 80048; 80061; 83721; 81003; 81015; 83036

== ENCOUNTER 2020-01-08 09:24 | Emergency (ER) | payer BC, SELFPAY ==
[2020-01-08 09:29] VITALS: BP 161/86; PULSE 99; RESP 16; TEMP 36.6; O2SAT 98
[2020-01-08 09:54] LABS: Abs Immature Grans 0.06 k/cumm (0.0-0.09); Absolute Basophil Count 0.06 k/cumm (0.0-0.2); Absolute Lymphocyte Count 1.75 k/cumm (1.2-3.4); Absolute Neutrophil Count 3.68 k/cumm (1.2-6.7); Eosinophils % 3.2; HCT 43.1 % (40.0-50.0); HGB 14.7 g/dL (13.5-17.5); Mean Corp. HGB Concentration 34.1 g/dL (32.0-36.0); Mean Corpuscular Hemoglobin 29.9 pg (27.0-33.0); Mean Corpuscular Volume 87.8 fL (80-95); Mean Platelet Volume 9.8 fL (8.0-11.0); Neutrophils % 58.8; Platelet Count 214 x1000/uL (130-400); RBC 4.91 m/cumm (4.50-6.00); RBC Distribution Width 13.2 % (11.8-14.1); White Blood Cell Count 6.25 k/cumm (4.4-10.8)
[2020-01-08 10:01] LABS: Bilirubin Negative (Negative); Blood Negative (Negative); Clarity Clear (Clear); Glucose Negative (Negative); Ketones Negative (Negative); Leukocyte Esterase Negative (Negative); Nitrite Negative (Negative); Specific Gravity >= 1.030 (1.005-1.025); Urobilinogen 0.2 EU/dL (Up TO 0.2); pH 5.5 (5-8)
[2020-01-08 10:06] LABS: ALT 45 U/L (16-63); AST 29 U/L (15-37); Alkaline Phosphatase 147 U/L (46-116); Anion Gap 13.7 mmol/L (3-11); BUN 19 mg/dL (7-18); Bilirubin, Total 0.5 mg/dL (0.2-1.0); CO2 21.3 mmol/L (21.0-32.0); CREATININE 1.12 mg/dL (0.70-1.30); Calcium 8.9 mg/dL (8.5-10.1); Chloride 99 mmol/L (98-107); Glucose 245 mg/dL (74-106); Potassium 3.9 mmol/L (3.5-5.1); Sodium 134 mmol/L (136-145); Total Protein 7.5 g/dL (6.4-8.2)
[2020-01-08 10:13] LABS: Epithelial Cells Rare HPF (Negative); RBC Negative HPF (0-2); WBC 0-2 HPF (0-5)
[2020-01-08 10:14] LABS: Bacteria Few HPF (Negative); C & S Indicated? No; Casts 0-2 Hyaline LPF (Negative); Crystals Other HPF (Negative); Mucus Moderate (Negative)
[2020-01-08] MEDS: Ketorolac 30 MG/ML VIAL IVP (10:30)
[2020-01-08] MEDS: diazePAM 10 MG/2 ML SYR IVP (10:30)
--- NOTE | 2020-01-08 10:30 | W.ED.GENAD ---
Discharge Plan Disposition Patient Disposition: HOME Condition: Stable Discharge Details Chief Complaint: Nk/Back Pain Clinical Impression: Back spasm Primary Care Provider: Humaira Colon ED Provider: Rj Sterling Home Meds and New Rx's Prescriptions: New diazepam [Valium] 10 mg tablet 10 mg PO TID PRNQty: 10 RF: 0 Continued tramadol 50 mg tablet 50 mg PO Q8H PRN (Reason: pain) Qty: 60 RF: 0 ibuprofen 800 mg tablet 800 mg PO TID PRNRF: 0 acetaminophen [Tylenol 8 Hour] 650 mg tablet extended release 650 mg PO Q8H PRN (Reason: pain) RF: 0 cholecalciferol (vitamin D3) 1,000 UNIT capsule 1,000 unit PO DAILY RF: 0 bosawellia 1,000 mg DAILY RF: 0 (DME) blood sugar diagnostic [Blood Glucose Test] Strip See Rx Instructions .ROUTE .MEDSUPPLY Qty: 100 RF: 3 lisinopril [Zestril] 10 mg tablet 10 mg PO DAILY Qty: 90 RF: 3 glimepiride 2 mg tablet 2 mg PO BID Qty: 180 RF: 3 metformin [Glucophage] 1,000 mg tablet 1,000 mg PO BID Qty: 180 RF: 3 trazodone 50 mg tablet 100 mg PO HS PRN (Reason: insomnia) Qty: 60 RF: 12 sildenafil (pulm.hypertension) 20 mg tablet 20 mg PO DAILY PRN (Reason: ED) Qty: 90 RF: 0 Discontinued carisoprodol 350 mg tablet 350 mg PO TID PRN (Reason: muscle pain) Qty: 30 RF: 0 Discharge Instructions Instructions: Muscle Spasm (ED) Additional Instructions: Discontinue Soma and add on Valium as directed. Remember Valium may cause drowsiness. Cool and/or warm compresses every 2 hours for 20 days. Gentle stretching as tolerated. [id number] medications as directed for symptomatic control. Please watch for new or worsening symptoms and return to the ER for any concerns. I do recommend reaching out your primary care provider tomorrow for prompt outpatient reevaluation, outpatient physical therapy, and referral to a back specialist may be indicated if symptoms persist Medical Decision Making 59-year-old gentleman presents with progressive back pain and spasms over the past week. Clinically this appears to be musculoskeletal in nature however this remote history of stones he would like to be sure there is nothing else going on. He also reports that he did take Motrin for neck symptoms. Of time because of football injuries would like to be sure that his renal function is normal. Will obtain routine laboratory values and urinalysis however a low suspicion for other etiology outside of musculoskeletal and spasm. Will provide IV Toradol and Valium. White blood cell count 6.25 hemoglobin 14.7 hematocrit 43.1 platelet count 214. Sodium 134 potassium 3.9 creatinine 1.12 estimated GFR greater than 60. Urinalysis negative for ketones, blood, nitrates, leuk esterase. Negative red blood cells high-power field. Discussed findings with patient and. Renal function as above greater than 60 GFR. No obvious hematuria. Patient is relieved that his renal function is within normal limits. Obviously this still could be a stone however without hematuria certainly decrease the likelihood. Patient has responded very nicely to the Valium, able to lift his legs now without going into a spasm. I feel like this is more of an indication that this is musculoskeletal spasms. We discussed advanced imaging, patient comfortable not obtaining those today. We will discontinue Soma and add on prescription for Valium. Discussed importance of outpatient follow-up, discussing evaluation with primary care provider, also potentially physical therapy if indicated. Patient has no additional questions or concerns and is comfortable discharge at this time Medical Records Medical records reviewed: Yes I reviewed the patient's medical records. Lab Data Lab results reviewed: Yes I reviewed the patient's lab results. Lab results narrative: Laboratory Tests Range/Units 01/08/20 01/08/20 01/08/20 09:40 09:40 09:55 WBC (4.4-10.8) k/cumm 6.25 RBC (4.50-6.00) m/cumm 4.91 Hgb (13.5-17.5) g/dL 14.7 Hct (40.0-50.0) % 43.1 MCV (80-95) fL 87.8 MCH (27.0-33.0) pg 29.9 MCHC (32.0-36.0) g/dL 34.1 RDW (11.8-14.1) % 13.2 Plt Count (130-400) x1000/uL 214 MPV (8.0-11.0) fL 9.8 Immature Gran % % 1.0 Neutrophils % 58.8 Lymphocytes % 28.0 Monocytes % 8.0 Eosinophils % 3.2 Basophils % 1.0 Absolute Neutrophils (1.2-6.7) k/cumm 3.68 Absolute Lymphocytes (1.2-3.4) k/cumm 1.75 Absolute Monocytes (0.11-0.7) k/cumm 0.50 Absolute Eosinophils (0.0-0.7) k/cumm 0.20 Absolute Basophils (0.0-0.2) k/cumm 0.06 Sodium (136-145) mmol/L 134 L Potassium (3.5-5.1) mmol/L 3.9 Chloride (98-107) mmol/L 99 Carbon Dioxide (21.0-32.0) mmol/L 21.3 Anion Gap (3-11) mmol/L 13.7 H BUN (7-18) mg/dL 19 H D Creatinine (0.70-1.30) mg/dL 1.12 Estimated GFR/1.73 m2 (mL/min/1.73m2) >= 60.00 Glucose (74-106) mg/dL 245 H D Calcium (8.5-10.1) mg/dL 8.9 Total Bilirubin (0.2-1.0) mg/dL 0.5 AST (15-37) U/L 29 ALT (16-63) U/L 45 Alkaline Phosphatase (46-116) U/L 147 H Total Protein (6.4-8.2) g/dL 7.5 Albumin (3.4-5.0) g/dL 4.0 Urine Color (Yellow) Yellow Urine Clarity (Clear) Clear Urine pH (5-8) 5.5 Ur Specific [place] (1.005-1.025) >= 1.030 H Urine Protein (Negative) mg/dL 30 H Urine Ketones (Negative) mg/dL Negative Urine Blood (Negative) Negative Urine Nitrite (Negative) Negative Urine Bilirubin (Negative) Negative Urine Urobilinogen (Up TO 0.2) EU/dL 0.2 Ur Leukocyte Esterase (Negative) Negative Urine RBC (0-2) HPF Negative Urine WBC (0-5) HPF 0-2 Ur Epithelial Cells (Negative) HPF Rare Urine Crystals (Negative) HPF Other Urine Bacteria (Negative) HPF Few Urine Casts (Negative) LPF 0-2 hyaline Urine Mucus (Negative) Moderate Urine Other (Negative) Ur Culture Indicated? No Urine Glucose (Negative) mg/dL Negative HPI General Mode of arrival: ambulatory. Date/Time Provider Initiated Documentation: 01/08/20 09:26. Limitations to Documentation: no limitations. Information obtained by: patient. HPI Narrative: 59-year-old male with a history of diabetes, hypertension, chronic knee pain, chronic back pain, presents to the ER with worsening back pain for approximately 1 week. He reports that movement and engagement of his core makes the pain worse. He denies any obvious injury but the day that he noticed the discomfort he did do 3 surgeries and may have been standing in an awkward position. He was initially using ibuprofen and a TENS unit with good relief however now this is not working. He did get evaluated by his primary care provider who provided tramadol and Soma which did help some but not was not helping at all. He had blood work drawn on Thursday. He denies any fever, chest pain, shortness of breath abdominal pain, nausea, vomiting, change in bowel or bladder habit. Denies radiation of pain up his back, into his chest, to his abdomen, down his legs. Denies numbness, tingling, weakness. Denies pain or swelling to his genitals. There is no hematuria, dysuria, frequency. He reports that he does have a history of kidney stones, does not believe this feels the same, and truly believes that this is muscular in nature. Now his symptoms are feeling more like a spasm. Related Data Home Medications Medication Instructions Recorded Confirmed cholecalciferol (vitamin D3) 1,000 unit PO DAILY 11/19/16 01/08/20 Bosawellia 1,000 mg DAILY 04/08/17 01/08/20 blood sugar diagnostic #100 each 03/07/19 01/08/20 lisinopril 10 mg tablet 10 mg PO DAILY #90 tab 06/06/19 01/08/20 acetaminophen 650 mg 650 mg PO Q8H PRN 06/09/19 01/08/20 tablet,extended release ibuprofen 800 mg tablet 800 mg PO TID PRN 06/09/19 01/08/20 glimepiride 2 mg tablet 2 mg PO BID #180 tab 07/05/19 01/08/20 metformin 1,000 mg tablet 1,000 mg PO BID #180 tab-cap 07/05/19 01/08/20 trazodone 50 mg tablet 100 mg PO HS PRN #60 tab 08/15/19 01/08/20 sildenafil (pulm.hypertension) 20 20 mg PO DAILY PRN #90 tab-cap 12/19/19 01/08/20 mg tablet tramadol 50 mg tablet 50 mg PO Q8H PRN #60 tab 01/03/20 01/08/20 diazepam [Valium] 10 mg PO TID PRN #10 tab 01/08/20 Previous Rx's Medication Instructions Recorded blood sugar diagnostic #100 each 03/07/19 lisinopril 10 mg tablet 10 mg PO DAILY #90 tab 06/06/19 glimepiride 2 mg tablet 2 mg PO BID #180 tab 07/05/19 metformin 1,000 mg tablet 1,000 mg PO BID #180 tab-cap 07/05/19 trazodone 50 mg tablet 100 mg PO HS PRN #60 tab 08/15/19 sildenafil (pulm.hypertension) 20 20 mg PO DAILY PRN #90 tab-cap 12/19/19 mg tablet tramadol 50 mg tablet 50 mg PO Q8H PRN #60 tab 01/03/20 diazepam [Valium] 10 mg PO TID PRN #10 tab 01/08/20 Allergies Allergy/AdvReac Type Severity Reaction Status Date / Time meloxicam Allergy Severe that shut Verified 01/08/20 09:32 my pnacreas down fenofibrate AdvReac Verified 01/08/20 09:32 primidone AdvReac HALLUCINATI Verified 01/08/20 09:32 ONS General Stated Complaint: Nk/Back Pain TAMMY: 3 Review of Systems Constitutional Constitutional: Denies fatigue, Denies fever(s) and Denies weakness ENT Ears, Nose, Mouth, and Throat: Denies sore throat Cardiovascular Cardiovascular: Denies chest pain and Denies dyspnea Respiratory Respiratory: Denies cough and Denies dyspnea Gastrointestinal Gastrointestinal: Denies abdominal pain, Denies diarrhea, Denies nausea and Denies vomiting Genitourinary Genitourinary: Denies hematuria, Denies dysuria and Denies testicular pain Musculoskeletal Musculoskeletal: Reports back pain, Denies myalgias, Denies numbness and Denies tingling Integumentary/Breasts Skin/Breast: Denies rash Neurologic Neurologic: Denies numbness, Denies tingling and Denies weakness Endocrine Endocrine: Denies fatigue [facility] Medical History Anxiety (Chronic) Basal cell carcinoma of right upper extremity (Resolved 09/02/17) Bilateral hip pain (Acute) Chronic pain of right knee (Acute) DM (diabetes mellitus) (Chronic) Essential tremor (Chronic) HTN (hypertension) (Chronic) Hyperlipidemia (Chronic 08/05/16) Left adrenal mass (Acute) Surgical History Colonoscopy - MAC (Inactive 07/24/17) Status post carpal tunnel release (Inactive) Status post endoscopy (Acute) upper endoscopic ultrasound (esophagus:normal findings) Pancreas: At least 4 diminutive cysts present largest 5 mm. no evidence of pancreatic mass lesion. consider repeat Ct scan in one year to demonstrate cyst stability. Néstor Hayes MD [facility] [place]/07/19. Family History Mother Diabetes Essential hypertension Hyperlipidemia Melanoma Father Essential hypertension Social History Smoking/Tobacco Use Status: Former Tobacco Use Alcohol Intake: current Alcohol Intake frequency: holidays/special occasions only Drug use: Never Substance use type: does not use Adopted: No Caregiver/Support person: No Foster care: No Household members: spouse Communication Needs: None Education Level: college Details: DDS current occupation: DENTIST Current gender identity: male What type of physical activity do you participate in: walking, bicycling and swimming Duration: 60-90 minutes/day Frequency: daily Do you feel safe at home: Yes Do you feel safe in your relationship?: Yes Exam Const General: cooperative and healthy appearing Orientation: alert, awake and oriented x3 HENMT Head: normal to inspection, normocephalic and atraumatic Mouth: moist mucous membranes Eyes Conjunctivae: conjunctivae normal Neck Neck: normal visual inspection, full ROM, trachea midline and supple Resp Effort & Inspection: normal respiratory effort and able to speak in complete sentences Auscultation: clear to auscultation bilaterally Cardio Rate: regular rate Rhythm: regular rhythm GI Palpation: soft, not firm, no guarding, no pulsatile masses, not rigid and nontender Auscultation: normal bowel sounds Back/Spine/Pelvis Back: no CVA tenderness and back tenderness (Diffuse lumbar, lower thoracic. Bilateral paravertebral spasm) Thoracic/Lumbar Spine: straight leg raise positive (Bilateral any engagement of legs, spasms worsen in back) Skin General skin exam: no rashes or lesions noted Neuro General: patient alert, patient awake, patient oriented x3, moves all extremities and no focal motor deficits Motor: muscle tone normal throughout and strength 5/5 throughout Sensory Exam: no sensory deficits noted Extrem General: normal to inspection, full ROM, capillary refill normal, no pedal edema and no calf tenderness Psych Appearance: grossly normal Mental Status: mental status grossly normal Course Vital Signs Vital signs: Vital Signs Temperature 36.6 C 01/08/20 09:29 Pulse 99 H 01/08/20 09:29 Respiratory Rate 16 01/08/20 09:29 Blood Pressure 161/86 H 01/08/20 09:29 Pulse Oximetry 98 01/08/20 09:29 Temperature 36.6 C 01/08/20 09:29 Temperature Source Tympanic 01/08/20 09:29 Pulse 99 H 01/08/20 09:29 Respiratory Rate 16 01/08/20 09:29 Respiratory Effort Non-Labored 01/08/20 09:34 Blood Pressure 161/86 H 01/08/20 09:29 Blood Pressure Position Sitting 01/08/20 09:29 Pulse Oximetry 98 01/08/20 09:29 Oxygen Delivery Method Room Air 01/08/20 09:29 Oxygen Flow Rate 0 01/08/20 09:29 Pain Level 10 01/08/20 09:29 Lab/Test Results Lab/Test Results: Laboratory Tests Range/Units 01/08/20 01/08/20 01/08/20 09:40 09:40 09:55 WBC (4.4-10.8) k/cumm 6.25 RBC (4.50-6.00) m/cumm 4.91 Hgb (13.5-17.5) g/dL 14.7 Hct (40.0-50.0) % 43.1 MCV (80-95) fL 87.8 MCH (27.0-33.0) pg 29.9 MCHC (32.0-36.0) g/dL 34.1 RDW (11.8-14.1) % 13.2 Plt Count (130-400) x1000/uL 214 MPV (8.0-11.0) fL 9.8 Immature Gran % % 1.0 Neutrophils % 58.8 Lymphocytes % 28.0 Monocytes % 8.0 Eosinophils % 3.2 Basophils % 1.0 Absolute Neutrophils (1.2-6.7) k/cumm 3.68 Absolute Lymphocytes (1.2-3.4) k/cumm 1.75 Absolute Monocytes (0.11-0.7) k/cumm 0.50 Absolute Eosinophils (0.0-0.7) k/cumm 0.20 Absolute Basophils (0.0-0.2) k/cumm 0.06 Sodium (136-145) mmol/L 134 L Potassium (3.5-5.1) mmol/L 3.9 Chloride (98-107) mmol/L 99 Carbon Dioxide (21.0-32.0) mmol/L 21.3 Anion Gap (3-11) mmol/L 13.7 H BUN (7-18) mg/dL 19 H D Creatinine (0.70-1.30) mg/dL 1.12 Estimated GFR/1.73 m2 (mL/min/1.73m2) >= 60.00 Glucose (74-106) mg/dL 245 H D Calcium (8.5-10.1) mg/dL 8.9 Total Bilirubin (0.2-1.0) mg/dL 0.5 AST (15-37) U/L 29 ALT (16-63) U/L 45 Alkaline Phosphatase (46-116) U/L 147 H Total Protein (6.4-8.2) g/dL 7.5 Albumin (3.4-5.0) g/dL 4.0 Urine Color (Yellow) Yellow Urine Clarity (Clear) Clear Urine pH (5-8) 5.5 Ur Specific [place] (1.005-1.025) >= 1.030 H Urine Protein (Negative) mg/dL 30 H Urine Ketones (Negative) mg/dL Negative Urine Blood (Negative) Negative Urine Nitrite (Negative) Negative Urine Bilirubin (Negative) Negative Urine Urobilinogen (Up TO 0.2) EU/dL 0.2 Ur Leukocyte Esterase (Negative) Negative Urine RBC (0-2) HPF Negative Urine WBC (0-5) HPF 0-2 Ur Epithelial Cells (Negative) HPF Rare Urine Crystals (Negative) HPF Other Urine Bacteria (Negative) HPF Few Urine Casts (Negative) LPF 0-2 hyaline Urine Mucus (Negative) Moderate Urine Other (Negative) Ur Culture Indicated? No Urine Glucose (Negative) mg/dL Negative
[2020-01-08 11:36] VITALS: BP 134/79; PULSE 91; RESP 18; TEMP 36.7; O2SAT 96
[2020-01-08 11:45] VITALS: BP 161/86; PULSE 99; RESP 18; TEMP 36.7; O2SAT 96
== END 2020-01-08 11:46 | disposition home or self-care (01) ==
PROVIDERS: Emergency Provider Physician Assistant; PCP Nurse Practitioner
DX: M62.830 Muscle spasm of back (principal); Z87.442 Personal history of urinary calculi; I10 Essential (primary) hypertension; E11.9 Type 2 diabetes mellitus without complications; Z79.84 Long term (current) use of oral hypoglycemic drugs
CPT/HCPCS: 36415; 80053; 96374; 96375; 99285; 81003; 81015; 85025; J1885; J3360

== ENCOUNTER 2020-02-20 07:48 | Outpatient (CLI) | payer BC, SELFPAY ==
[2020-02-25 06:51] LABS: SARS-CoV-2 RNA Undetected (Undetected); SARS-CoV-2 Specimen Source Nasopharynx
== END 2020-02-20 08:08 ==
PROVIDERS: PCP Nurse Practitioner; Visit Provider Nurse Practitioner
DX: Z11.59 Encounter for screening for other viral diseases (principal)
CPT/HCPCS: U0003